=== PATIENT | female | born 1965 | race Caucasian/White ===

== ENCOUNTER 2018-08-28 16:03 | Emergency (ER) | payer OTHER ==
[2018-08-28 16:58] LABS: Absolute Lymphocytes (CBC) 2.1 K/uL (0.7-4.9); Absolute Monocytes 1.2 K/uL (0.1-1.3); Absolute Neutrophil 10.3 K/uL (1.8-8.0); Basophils % 0.3 % (0-1.3); Hematocrit 43.2 % (36.0-45.0); Lymphocytes % 15.1 % (15.3-44.8); MPV 7.5 fL (7.6-11.3); Monocytes % 9.1 % (3.3-12.3); RBC Red Blood Cell Count 4.53 M/uL (3.86-4.86)
--- NOTE | 2018-08-28 16:58 | RAD REPORT ---
EXAM DESCRIPTION: Ca Aguilar (2 Views)08/28/2018 4:46 pm CLINICAL HISTORY: Cough COMPARISON: None FINDINGS: The lungs appear clear of acute infiltrate. The heart is normal size IMPRESSION: No acute abnormalities displayed
[2018-08-28 17:12] LABS: Potassium 3.9 mmol/L (3.5-5.1)
--- NOTE | 2018-08-28 18:18 | ER ---
Nurse's Notes [facility] Name: Andra Rhodes Age: 53 yrs Sex: Female : 1965 Arrival Date: 08/28/2018 Time: 16:08 Bed 23 Private MD: CRYSTAL MAYS Diagnosis: Bronchitis, not specified as acute or chronic Presentation: 08/28 16:12 Presenting complaint: Patient states: SOB and nonproductive cough x 10 days. Recently hb seen by PCP, told she has pneumonia. On Levaquin Day 3. Transition of care: patient was not received from another setting of care. Onset of symptoms is unknown. Risk Assessment: Do you want to hurt yourself or someone else? Patient reports no desire to harm self or others. Care prior to arrival: None. 16:12 Method Of Arrival: Ambulatory hb 16:12 Acuity: ELÍAS 3 hb 16:42 Initial Sepsis Screen: Does the patient meet any 2 criteria? No. Patient's initial ls4 sepsis screen is negative. Does the patient have a suspected source of infection? Yes: Productive cough/pneumonia. Triage Assessment: 16:41 General: Appears in no apparent distress. Behavior is calm, cooperative. 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 - Social history:: Smoking status: Patient/guardian denies using tobacco. - Ebola Screening: : No symptoms or risks identified at this time. Screenin:16 Abuse screen: Denies threats or abuse. Denies injuries from another. Nutritional hb screening: No deficits noted. Tuberculosis screening: No symptoms or risk factors identified. Fall Risk None identified. Assessment: 17:34 Reassessment: No changes from previously documented assessment. Patient and/or family ls4 updated on plan of care and expected duration. Pain level reassessed. Patient is alert, oriented x 3, equal unlabored respirations, skin warm/dry/pink. General: see triage assessment . Pain:. Respiratory: Respiratory effort is even, unlabored, Respiratory pattern is regular. 18:29 Reassessment: No changes from previously documented assessment. Patient and/or family ls4 updated on plan of care and expected duration. Pain level reassessed. Patient is alert, oriented x 3, equal unlabored respirations, skin warm/dry/pink. Vital Signs: 16:15 BP 150 / 100; Pulse 112; Resp 18; Temp 99.2(TE); Pulse Ox 100% on R/A; Pain 0/10; hb 17:18 BP 117 / 80; Pulse 77; Resp 16; Temp 98.2; Pulse Ox 99% on R/A; Pain 3/10; ls4 18:31 BP 116 / 80; Pulse 60; Resp 16; Temp 98.2; Pulse Ox 99% on R/A; Pain 3/10; ls4 ED Course: 16:08 Patient arrived in ED. sb2 16:08 CRYSTAL MAYS is Private Physician. sb2 16:13 Marifer Chavez, REJI is [facility]. kb 16:13 Amol Patel MD is Attending Physician. kb 16:14 Triage completed. hb 16:15 Arm band placed on left wrist. EKG completed in triage. Results shown to MD. hb 16:20 Patient has correct armband on for positive identification. Placed in gown. Bed in low ls4 position. Side rails up X 1. 16:20 Pulse ox on. NIBP on. Warm blanket given. ls4 16:27 Jenifer Fontana, RN is Primary Nurse. ls4 16:35 Patient moved to radiology via wheelchair. mh1 16:40 Inserted saline lock: 18 gauge in right antecubital area, using aseptic technique. ds4 Blood collected. 16:42 No provider procedures requiring assistance completed. ls4 16:43 X-ray completed. Patient tolerated procedure well. Patient moved back from radiology. mh1 16:44 Chest Pa And Lat (2 Views) XRAY In Process Unspecified. EDMS 16:50 Blood Culture Adult (2) Sent. ds4 16:50 D-Dimer Sent. ds4 16:50 Basic Metabolic Panel Sent. ds4 16:51 CBC with Diff Sent. ds4 17:29 Flu Sent. ss 18:31 IV discontinued, intact, bleeding controlled, No redness/swelling at site. Pressure ls4 dressing applied. Administered Medications: No medications were administered Outcome: 18:16 Discharge ordered by . kb 18:30 Discharged to home ambulatory. ls4 18:30 Condition: stable 18:30 Discharge instructions given to patient, family, Instructed on discharge instructions, follow up and referral plans. medication usage, Demonstrated understanding of instructions, follow-up care, medications. 18:34 Patient left the ED. ls4 Signatures: Dispatcher [employer] EDMS Marifer Chavez, RESERVOIR ENGINEER-C RESERVOIR ENGINEER-Ckb Sherron Vazquez mh1 Sharonda Parham, RN RN Ash Sorensen ds4 Lainey Edge, RN RN Cheryl Jaime sb2 Jenifer Fontana, RN RN ls4
--- NOTE | 2018-08-28 18:18 | EDPHYS ---
Physician Documentation [facility] Name: Andra Rhodes Age: 53 yrs Sex: Female : 1965 Arrival Date: 08/28/2018 Time: 16:08 Bed 23 Private MD: CRYSTAL MAYS ED Physician Amol Patel HPI: 08/28 17:20 This 53 yrs old Female presents to ER via Ambulatory with complaints of kb PNEUMONIA. 17:20 The patient or guardian reports cough, that is intermittent, described as moderate, kb with no sputum, difficulty breathing. Onset: The symptoms/episode began/occurred 1.5 week(s) ago. Severity of symptoms: At their worst the symptoms were moderate, in the emergency department the symptoms are unchanged. Modifying factors: The symptoms are alleviated by nothing, the symptoms are aggravated by nothing. Associated signs and symptoms: The patient has no apparent associated signs or symptoms. The patient has not experienced similar symptoms in the past. The patient has not recently seen a physician. Pt reports cough and shortness of breath for a week and a half. Went to her Dr last Sunday and was given a shot of antibiotics and steroids, placed on a z-pack and medrol dose pack. Completed both of those, but symptoms continued so she went back to PCP on Sunday. Was put on levaquin and prednisone. Reports she felt better yesterday, but symptoms are back today. 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 - Social history:: Smoking status: Patient/guardian denies using tobacco. - Ebola Screening: : No symptoms or risks identified at this time. ROS: 17:19 Constitutional: Negative for fever, chills, and weight loss, ENT: Negative for injury, kb pain, and discharge, Neck: Negative for injury, pain, and swelling, Cardiovascular: Negative for chest pain, palpitations, and edema, Abdomen/GI: Negative for abdominal pain, nausea, vomiting, diarrhea, and constipation, Back: Negative for injury and pain, MS/Extremity: Negative for injury and deformity, Skin: Negative for injury, rash, and discoloration, Neuro: Negative for headache, weakness, numbness, tingling, and seizure. 17:19 Respiratory: Positive for cough, dyspnea on exertion, shortness of breath, Negative for hemoptysis, orthopnea, pleurisy, wheezing. Exam: 17:20 Constitutional: This is a well developed, well nourished patient who is awake, alert, kb and in no acute distress. Head/Face: Normocephalic, atraumatic. ENT: Nares patent. No nasal discharge, no septal abnormalities noted. Tympanic membranes are normal and external auditory canals are clear. Oropharynx with no redness, swelling, or masses, exudates, or evidence of obstruction, uvula midline. Mucous membranes moist. Neck: Trachea midline, no thyromegaly or masses palpated, and no cervical lymphadenopathy. Supple, full range of motion without nuchal rigidity, or vertebral point tenderness. No Meningismus. Chest/axilla: Normal chest wall appearance and motion. Nontender with no deformity. No lesions are appreciated. Cardiovascular: Regular rate and rhythm with a normal S1 and S2. No gallops, murmurs, or rubs. Normal PMI, no JVD. No pulse deficits. Respiratory: Lungs have equal breath sounds bilaterally, clear to auscultation and percussion. No rales, rhonchi or wheezes noted. No increased work of breathing, no retractions or nasal flaring. Abdomen/GI: Soft, non-tender, with normal bowel sounds. No distension or tympany. No guarding or rebound. No evidence of tenderness throughout. Back: No spinal tenderness. No costovertebral tenderness. Full range of motion. Skin: Warm, dry with normal turgor. Normal color with no rashes, no lesions, and no evidence of cellulitis. MS/ Extremity: Pulses equal, no cyanosis. Neurovascular intact. Full, normal range of motion. Neuro: Awake and alert, GCS 15, oriented to person, place, time, and situation. Cranial nerves II-XII grossly intact. Motor strength 5/5 in all extremities. Sensory grossly intact. Cerebellar exam normal. Normal gait. Vital Signs: 16:15 BP 150 / 100; Pulse 112; Resp 18; Temp 99.2(TE); Pulse Ox 100% on R/A; Pain 0/10; hb 17:18 BP 117 / 80; Pulse 77; Resp 16; Temp 98.2; Pulse Ox 99% on R/A; Pain 3/10; ls4 18:31 BP 116 / 80; Pulse 60; Resp 16; Temp 98.2; Pulse Ox 99% on R/A; Pain 3/10; ls4 MDM: 16:17 Patient medically screened. kb 17:18 Data reviewed: vital signs, nurses notes. Data interpreted: Pulse oximetry: on room air kb is 100 %. Interpretation: normal. 18:16 Counseling: I had a detailed discussion with the patient and/or guardian regarding: the kb historical points, exam findings, and any diagnostic results supporting the discharge/admit diagnosis, lab results, radiology results, the need for outpatient follow up, a family practitioner, to return to the emergency department if symptoms worsen or persist or if there are any questions or concerns that arise at home. 08/28 16:25 Order name: CBC with Diff; Complete Time: 17:14 kb 08/28 16:25 Order name: Basic Metabolic Panel; Complete Time: 17:14 kb 08/28 16:25 Order name: Flu; Complete Time: 17:46 kb 08/28 16:25 Order name: D-Dimer; Complete Time: 17:17 kb 08/28 16:26 Order name: Blood Culture Adult (2) kb 08/28 17:27 Order name: [place] Screen Profile; Complete Time: 18:02 kb 08/28 16:25 Order name: Chest Pa And Lat (2 Views) XRAY; Complete Time: 17:03 kb 08/28 16:25 Order name: IV Start; Complete Time: 16:50 kb Administered Medications: No medications were administered Disposition: 18:38 Co-signature as Attending Physician, Amol Patel MD. rn Disposition: 08/28/18 18:16 Discharged to Home. Impression: Bronchitis, not specified as acute or chronic. - Condition is Stable. - Discharge Instructions: Acute Bronchitis, [id number], Viral Respiratory Infection, [id number]. - Medication Reconciliation Form, Thank You Letter, Antibiotic Education, Prescription Opioid Use form. - Follow up: Emergency Department; When: As needed; Reason: Worsening of condition. Follow up: Private Physician; When: 2 - 3 days; Reason: Recheck today's complaints, Continuance of care, Re-evaluation by your physician. Signatures: Dispatcher [employer] ED Marifer Chvaez, HVAC ENGINEERING TECHNICIAN-C HVAC ENGINEERING TECHNICIAN-Ckb Amol Patel MD MD rn Baxter, Heather, RN RN hb Stewart, Lisa, RN RN ls4 Corrections: (The following items were deleted from the chart) 18:34 18:16 08/28/2018 18:16 Discharged to Home. Impression: Bronchitis, not specified as ls4 acute or chronic. Condition is Stable. Forms are Medication Reconciliation Form, Thank You Letter, Antibiotic Education, Prescription Opioid Use. Follow up: Emergency Department; When: As needed; Reason: Worsening of condition. Follow up: Private Physician; When: 2 - 3 days; Reason: Recheck today's complaints, Continuance of care, Re-evaluation by your physician. kb
== END 2018-08-28 18:34 | disposition home or self-care (01) ==
LOC: ER 16:03
DX: J40 Bronchitis, not specified as acute or chronic (principal)
CPT/HCPCS: 36415; 71046; 80048; 85025; 85379; 86308; 87040; 87804; 99284

== ENCOUNTER 2021-04-09 15:35 | Inpatient (IN) | payer BC ==
--- OUTSIDE RECORDS SUMMARY | 2021-04-09 15:41 | XMS REPORT | Continuity of Care Document ---
:1965 Author Organization [facility] t Address [address] [place] [address] Care Team Providers Name Role Phone Dennise Philippe Primary Care Physician Jennifer ODOM EAngie Attending Clinician Donnie BARRAZA Attending Clinician Blanca Live MD Attending Clinician Dhruv George Attending Clinician Ozzy Reese MD Attending Clinician Scott THAPA Attending Clinician Unavailable Abdirizak STEWART Attending Clinician Unavailable Brigida Talamantes MD Attending Clinician Evans Fowler MD Attending Clinician MD JENNIFER E. Attending Clinician Unavailable Isaiah Knowles Attending Clinician JENNIFER Admitting Clinician Unavailable MD JENNIFER E. Admitting Clinician Unavailable Payers Payer Name Policy Type Policy Effective Date Expiration Date Sour ce Number BCBSBCBS CHOICE [id number] [address] PPO/FEDERAL 00:00:00 Hospital EMPL [id number] 2020-Presen tPPO Problems Condition Condition Condition Status Onset Resolution Last Treating Co mments Source Name Details Category Date Date Treatment Clinician Date Subacromia Subacromia Disease Active 2019-08 M ethodi l bursitis l bursitis 2-11 st of left of left 00:00: Hospita shoulder shoulder 00 l joint joint Achilles Achilles Disease Active 2019-08 Metho di tendinosis tendinosis 12 st of left of left 00:00: Hospita lower lower 00 l extremity extremity Retrocalca Retrocalca Disease Active 2019-08 M ethodi thiago thiago 08-24 st bursitis, bursitis, 00:00: Hosp eloisa left left 00 l 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 08-24 exostosis, exostosis, 00:00: Ho spita left left 00 l Hallux Hallux Disease Active Methodi valgus valgus 02-05 with with 00:00: Hospita bunions, bunions, 00 l right right Diabetes Problem Resolve 2020-11-11 Me moria mellitus d 00:37:39 l (disorder) Diabetes He rmann mellitus (disorder) Resolved Problem 11/11/2020 [facility] Group Hyperchole Problem Resolve 2020-11-11 Memoria sterolemia d 00:37:39 l (disorder) Ethan n Hyperchole sterolemia (disorder) Resolved Problem 11/11/2020 Medical Group Hypertensi Problem Resolve 2020-11-11 Memoria ve d 00:37:39 l disorder, Mike systemic Hypertensi arterial ve (disorder) disorder, systemic arterial (disorder) Resolved Problem 11/11/2020 Medical Group Morbid Problem Active 2020-11-11 Memor ia obesity 00:37:39 l (disorder) Morbid Herm corie obesity (disorder) Active Problem 11/11/2020 Medical Group Female Problem Active 2020-11-11 Memor ia urinary 00:37:39 l stress Female Mike incontinen urinary ce stress (finding) incontinen ce (finding) Active Problem 11/11/2020 Medical Group Urge Problem Active 2020-11-11 Memor ia incontinen 00:37:39 l ce of Urge [place] urine incontinen (finding) ce of urine (finding) Active Problem 11/11/2020 Medical Group S/P RTC Diagnosis Active 2014-11-03 Me moria REPAIR 17:02:00 l S/P RTC Mike REPAIR Active [facility] Pharyngiti Pharyngiti Problem Active [facility] unspecifie unspecifie Me moria d etiology d etiology l [facility] Cough Cough Problem Active [facility] UTI UTI Diagnosis Active [facility]inary ([facility]inary [facility] - tract tract Memoria infection) infection) l [facility] Allergies, Adverse Reactions, Alerts Allergy Allergy Status Severity Reaction(s) Onset Inactive Treating Comm ents Source Name Type Date Date Clinician lidocain lidocain Active Memori a e e dhruv [place] Family History Family Member Diagnosis Comments Start Date Stop Date Source Natural father Diabetes [facility] Natural father Heart attack [facility] Natural father Heart disease [facility] Social History Social Habit Start Date Stop Date Quantity Comments Source Tobacco use and 2020-12-28 2020-12-28 Never used Islam exposure 00:00:00 00:00:00 Hospital Alcohol intake 2020-12-28 2020-12-28 Current drinker [facility] dist 00:00:00 00:00:00 of alcohol Hospital (finding) Sex Ass[birth year] At [birth year] F Islam 00:00:00 00:00:00 Hospital Smoking Status Start Date Stop Date Source Never smoker [facility] Hospit al Medications Ordered Filled Start Stop Current Ordering Indication Dosage Frequency Signature Comments Components Source Medication Medication Date Date Medication? Clinician (SIG) Name Name gabapentin 2020- No 100mg [id number] Take 1 Methodi (Neurontin) 01-[id number] 100 mg 00:00: 04:59 3D (100 mg Hospita capsule 00 :00 total) by l mouth 3 (three) times a day for 30 days. gabapentin 2020- No TAKE 1 Meth segundo (NEURONTIN) 01-27 CAPSULE BY s t 100 mg 00:00: 00:00 MOUTH Hospita capsule 00 :00 EVERY DAY l IN THE EVENING gabapentin Yes TAKE 1 Metho di (NEURONTIN) 01-[address] 100 mg 00:00: MOUTH Hospita capsule 00 EVERY DAY l IN THE EVENING gabapentin 2020- No 100mg QD Take 1 Met hodi (Neurontin) 01-[address] 100 mg 00:00: 00:00 (100 mg Hospita capsule 00 :00 total) by l mouth nightly. gabapentin 2020- No 100mg QD Take 1 Met hodi (Neurontin) 12-10- capsule st 100 mg 00:00: 00:00 (100 mg Hospita capsule 00 :00 total) by l mouth nightly. solifenacin Yes 5 mg = 1 Me moria 5 mg oral 3-30 tab, PO, l tablet 22:21: Daily, # [place] 00 90 tab, 1 Refill(s), Pharmacy: [facility] #[id number], 170.18, cm, 11/08/20 8:29:00 CDT, Height, 96.364, kg, 11/08/20 8:29:00 CDT, Weight 24 HR No 50 mg = 1 Memoria mirabegron 3-29 tab, PO, l 50 MG 21:50: Daily, [place] Extended 00 please fax Release prior auth Tablet forms to [Myrbetriq] , # 90 tab, 3 Refill(s), Pharmacy: [facility] #[id number], 170.18, cm, 11/08/20 8:29:00 CDT, Height, 96.364, kg, 11/08/20 8:29:00 CDT, Weight naproxen 2020- No 500mg Q.5D Take 1 Metho di (NAPROSYN) 10-[address] 500 MG 00:00: 04:59 (500 mg Hospita tablet 00 :00 total) by l mouth 2 (two) times a day for 15 days. Take 1 tablet twice daily for 15 days. Remainder of prescripti on quantity is for symptom management as needed. methylPREDN 2020- No 4mg Take 1 Met hodi ISolone 10-1915 tablet (4 st (MEDROL 00:00: 04:59 mg total) Hosp eloisa DOSEPAK) 4 00 :00 by mouth l mg tablet See Admin Instructio ns for 5 days. Use as directed by package instructio ns Sulfamethox Yes 1 tab, PO, Memoria azole 800 2-05 Q12H, X 5 l MG / 14:59: day, # 10 [place] Trimethopri 00 tab, 0 m 160 MG Refill(s), Oral Tablet Pharmacy: [Bactrim] [facility] #[id number], 162.56, cm, 09/14/20 15:06:00 [employer], Height, 96.364, kg, 09/14/20 15:06:00 [employer], Weight 24 HR 2020-0 Yes 50 mg = 1 Memoria mirabegron 2-02 tab, PO, l 50 MG 22:00: Daily, # Mike Extended 00 30 tab, 0 Release Refill(s), Tablet Pharmacy: [Myrbetriq] [facility] #[id number], 162.56, cm, 09/14/20 15:06:00 [employer], Height, 96.364, kg, 09/14/20 15:06:00 [employer], Weight meloxicam 2020-0 Yes 0 Memoria 7.5 mg oral 2-02 Refill(s) l tablet 21:14: Mike 00 busPIRone 5 2020-0 Yes 0 Memori a mg oral 2-02 Refill(s) l tablet 21:14: [place] 00 MetFORMIN 2020-0 Yes 0 Memoria (Eqv-Glucop 2-02 Refill(s) l dennise XR) 21:14: [place] 500 mg oral 00 tablet, extended release gabapentin 2020-0 Yes 0 Memoria 100 MG Oral 2-02 Refill(s) l Capsule 21:14: Mike 00 lisinopril 2020-0 Yes 0 Memoria 20 mg oral 2-02 Refill(s) l tablet 21:14: Mike 00 Hydrochloro 2020-0 Yes 0 Memori a thiazide 25 2-02 Refill(s) l MG Oral 21:14: [place] Tablet 00 gabapentin 2019-08 2020- No 100mg QD Take 1 Met hodi (Neurontin) 1-25 12-[address] 100 mg 00:00: 05:59 (100 mg Hospita capsule 00 :00 total) by l mouth nightly for 30 days. lisinopriL 2019-08 Yes 20mg QD Take 20 mg M ethodi (PRINIVIL) 1-[address] 20 mg 00:09: daily. Hospita tablet 55 l meloxicam 2019- Yes 7.5mg QD Take 7.5 Met hodi (MOBIC) 7.5 1-[address] mg tablet 00:09: mouth Hospita 55 daily. l metFORMIN 2019-08 Yes 500mg QD Take 500 Met hodi (GLUCOPHAGE 1-[address] ) 500 mg 00:09: mouth Hospita tablet 55 daily with l breakfast. atorvastati 2019-08 Yes 10mg QD Take 10 mg Methodi n (LIPITOR) 1-[address] 10 mg 00:09: daily. Hospita tablet 55 l busPIRone 2019-08 Yes 5mg Q.5D Take 5 mg Met hodi (BUSPAR) 5 -[address] MG tablet 00:09: (two) Hospita 55 times a l day. fluticasone 2019-08 Yes 2{spray QD 2 sprays Methodi propionate 1-14 } by Each st (FLONASE) 00:09: Nare route Ho spita 50 55 daily. l mcg/actuati on nasal spray aspirin 2019-08- No 325mg Q.5D Take 1 Method i (ECOTRIN) 08-[address] 325 MG 00:00: 05:59 (325 mg Hospita enteric 00 :00 total) by l coated mouth 2 tablet (two) times a day for 10 days. promethazin 2019-08- No 25mg Q6H Take 1 Met hodi e 08-24-20 tablet (25 st (PHENERGAN) 00:00: 05:59 mg total) Hospita 25 MG 00 :00 by mouth l tablet every 6 (six) hours as needed for nausea or vomiting for up to 7 days. cephalexin 2019-08- No 500mg Q.5D Take 1 Met hodi (KEFLEX) 08-[address] 500 MG 00:00: 05:59 (500 mg Hospita capsule 00 :00 total) by l mouth 2 (two) times a day for 2 doses. Estradiol Estradiol Yes Ezequiel as [facility]12 [place] [facility] 00:[facility]: [facility] 00 [facility] Zofran Zofran Yes Ezequiel [address] [facility] - 00[facility] 00 [facility] hydroCHLORO Yes Method i thiazide 5-03 st (HYDRODIURI 00:00: Hospit a L) 25 MG 00 l tablet Hydrochloro Hydrochloro Yes Ezequiel not [facility] thiazide thiazide [place] defined [facility] Tramadol Tramadol Yes Ezequiel [address] HCl HCl [facility] as needed [facility] Topamax Topamax Yes Ezequiel [address] [facility] Richland-3 [place]land-3 Yes Ezequiel not [facility] Acetaminoph Acetaminoph Yes Ezequiel not [facility] en-Codeine en-Codeine [facility] defined [facility] - [facility]3 [facility]3 [facility] Adderall XR Adderall XR Yes Ezequiel [address] [facility] [place] in the [facility] - morning [facility] Adderall XR Adderall XR Yes Ezequiel not [facility] [place] [facility] Duexis Duexis Yes Ezequiel [address] [facility] Vitamin B12 Vitamin B12 Yes Ezequiel not [facility] Atorvastati Atorvastati Yes Ezequiel [address] n Calcium n Calcium [facility] Topiramate Topiramate Yes Ezequiel not [facility] defined [facility] Amphetamine Amphetamine Yes Ezequiel not [facility] Salt Combo Salt Combo [facility] defined [facility] MetFORMIN MetFORMIN Yes Ezequiel [address] HCl ER HCl ER [facility] with [facility] - evening [facility]oria meal l [facility] Fluoxetine Fluoxetine Yes Ezequiel not [facility] Lisinopril Lisinopril Yes Ezequiel not [facility] Zinc Zinc Yes Ezequiel not [facility] Vital Signs Vital Name Observation Time Observation Value Comments Source Height 2020-11-08 13:29:00 170.18 cm Vicky Mckeon Weight 2020-11-08 13:29:00 [facility] Mike BMI Calculated 2020-11-08 13:29:00 Franny Vivas Systolic (mm Hg) 2020-09-14 21:06:00 Misael Mckeon Diastolic (mm Hg) 2020-09-14 21:06:00 Adam Mckeon Heart Rate 2020-09-14 21:06:00 [facility] Height 2020-09-14 21:06:00 162.56 cm [facility] Weight 2020-09-14 21:06:00 [facility] BMI Calculated 2020-09-14 21:06:00 Franny Vivas Body height 2020-07-23 21:08:00 162.6 cm [facility] Body weight 2020-07-23 21:08:00 93.441 kg [facility] BMI 2020-07-23 21:08:00 35.36 kg/m2 [facility] Systolic blood 2020-06-26 00:00:00 125 mm[Hg] [facility] pressure Diastolic blood 2020-06-26 00:00:00 83 mm[Hg] [facility] pressure Heart rate 2020-06-26 00:00:00 78 /min [facility] Body temperature 2020-06-26 00:00:00 35.56 Lise [facility] Respiratory rate 2020-06-26 00:00:00 16 /min [facility] Oxygen saturation in 2020-06-26 00:00:00 97 /min [facility] Arterial blood by Pulse oximetry Procedures Procedure Date / Time Performing Clinician Source Performed MRI LOWER EXTREMITY JOINT 2020-12-09 22:11:00 Anton Rodriguez [facility] WO CONTRAST LEFT IN ARTHROCENTESIS 2020-07-23 20:45:[address] [facility] ASPIR&/INJ MAJOR JT/BURSA W/O US XR SHOULDER 2+ VW LEFT 2020-07-23 20:40:27 López Ashlyn Ozzy [facility] IN AN ELECTIVE 2020-06-25 20:40:55 French [facility] ENDOTRACHEAL AIRWAY REPAIR, RUPTURE, ACHILLES 2020-06-25 20:13:00 Anton Rodriguez [facility] TENDON POC GLUCOSE 2020-06-25 17:03:00 Anton Rodriguez ospital COVID-19 QUALITATIVE 2020-06-24 22:14:00 Anton Rodriguez [facility] RT-PCR XR FOOT 3+ VW LEFT 2020-06-08 18:23:00 Anton Rodriguez [facility] XR CALCANEUS 2+ VW LEFT 2020-06-08 18:22:35 Anton Rodriguez [facility] MRI LOWER EXTREMITY 2020-05-27 00:15:00 Anton Rodriguez [facility] EXTERNAL STUDY Appendectomy [facility] Gallbladder operation [facility] Plan of Care Planned Activity Planned Date Details Comments Source Future Scheduled Test COVID-19 VACCINE (1) [facility] [code = COVID-19 VACCINE (1)] Future Scheduled Test Hepatitis C screening [facility] (procedure) [code = 545467965] Future Scheduled Test Screening for malignant [facility] neoplasm of cervix (procedure) [code = 622963074] Future Scheduled Test BREAST CANCER SCREENING [facility] [code = BREAST CANCER SCREENING] Future Scheduled Test COLONOSCOPY SCREENING [facility] [code = COLONOSCOPY SCREENING] Future Scheduled Test SHINGLES VACCINES (#1) [facility] [code = SHINGLES VACCINES (#1)] Future Scheduled Test INFLUENZA VACCINE [code [facility] = INFLUENZA VACCINE] Encounters Start End Encounter Admission Attending Care Care Encounter Source Date/Time Date/Time Type Type Clinicians Facility Department ID 2021-05-09 2021-05-09 Outpatient [facility] [id number] [facility] 08:30:00 08:30:00 02 l [place] 2021-01-28 2021-01-28 Orders Jennifer, 1.2.840.1 [id number] Methodi 00:00:00 00:00:00 Only Anton Moser 43583.1.[address] 3.430.2.7 Hospit a .3.421702 l .8 2021 2021 Refill Jennifer, 1.2.840.1 [id number] Methodi 00:00:00 00:00:00 Anton Moser [address]0519.1.[address] 3.430.2.7 Hospit a .3.083985 l .8 2021-01-25 2021-01-25 Travel 1.2.840.1 1.2.735.365 [id number] Methodi 00:00:00 00:00:[address] 3.430.2.7 0.2.7.3.698 Ho spita .3.364075 084.8 l .8 2021-01-20 2021-01-20 Office Donnie, 1.2.840.1 [id number] Methodi 10:33:55 11:57:18 Visit Dean 07775.1.[address] 3.430.2.7 Hospit a .3.206260 l .8 2021-01-20 2021-01-20 Travel 1.2.840.1 1.2.221.494 [id number] Methodi 00:00:00 00:00:[address] 3.430.2.7 0.2.7.3.698 Ho spita .3.325386 084.8 l .8 2021-01-20 2021-01-20 Outpatient DONNIE, [facility] [id number] 00:00:00 00:00:00 DEAN [address] 2021-01-18 2021-01-18 Travel 1.2.840.1 1.2.102.015 [id number] [id number] Methodi 00:00:00 00:00:[address] 3.430.2.7 0.2.7.3.698 Ho spita .3.771530 084.8 l .8 2021-01-12 2021-01-12 Yesenia Rodriguez, 1.2.840.1 [id number] Methodi 00:00:00 00:00:00 Only Anton Moser 56381.1.[address] 3.430.2.7 Hospit a .3.097137 l .8 2021-01-12 2021-01-12 Refill Jennifer, 1.2.840.1 [id number] Methodi 00:00:00 00:00:00 Anton Moser 60554.1.[address] 3.430.2.7 Hospit a .3.865836 l .8 2020-12-28 2020-12-28 Office Maria T, 1.2.840.1 [id number] Methodi 08:35:09 12:43:29 Visit Ifrah M [address]326.1.[address] 3.430.2.7 Hospit a .3.378626 l .8 2020-12-28 2020-12-28 Travel 1.2.840.1 1.2.384.030 [id number] [id number] Methodi 00:00:00 00:00:[address] 3.430.2.7 0.2.7.3.698 Ho spita .3.921488 084.8 l .8 2020-12-28 2020-12-28 Outpatient MARIA T, [facility] [id number] 00:00:00 00:00:00 IFRAH [address] 2020-12-15 2020-12-15 Travel 1.2.840.1 1.2.191.005 [id number] Methodi 00:00:00 00:00:[address] 3.430.2.7 0.2.7.3.698 Ho spita .3.305269 084.8 l .8 2020-12-14 2020-12-14 Telephone Jennifer, 1.2.840.1 [id number] Methodi 00:00:00 00:00:00 Anton [address]oser [address]246.1.[address] 3.430.2.7 Hospit a .3.338785 l .8 2020-12-10 2020-12-10 Office Donnie, 1.2.840.1 [id number] Methodi 13:17:40 14:10:43 Visit Dean 87889.1.[address] 3.430.2.7 Hospit a .3.017819 l .8 2020-12-10 2020-12-10 Travel 1.2.840.1 1.2.255.104 [id number] [id number] Methodi 00:00:00 00:00:[address] 3.430.2.7 0.2.7.3.698 Ho spita .3.532093 084.8 l .8 2020-12-10 2020-12-10 Outpatient DONNIE [facility] [id number] 00:00:00 00:00:00 DEAN [address] 2020-12-09 2020-12-09 [facility] Jennifer, 1.2.840.1 [id number] Methodi 16:08:17 23:59:00 Encounter Anton TravisAngie 73389.1.1 [address] t 3.430.2.7 Hospit a .3.468830 l .8 2020-12-09 2020-12-09 Outpatient JENNIFER [facility] [id number] [address] [place] [address] 00:00:00 00:00:00 ANTON [address] 2020-12-08 2020-12-08 Travel 1.2.840.1 1.2.918.456 [id number] [id number] Methodi 00:00:00 00:00:[address] 3.430.2.7 0.2.7.3.698 [facility] .[facility].605629 084.8 l .8 2020-12-07 2020-12-07 [facility], 1.2.840.1 [id number] Methodi 00:00:00 00:00:00 Only Anton AngyAngie 29435.1.[address] 3.430.2.7 Hospit a .3.014951 l .8 2020-11-15 2020-11-15 [facility] Donnie, 1.2.840.1 [id number] Methodi 00:00:00 00:00:[address] 3.430.2.7 Hospit a .3.310965 l .8 2020-11-08 2020-11-09 Outpatient nullFlavo [facility] Multi 35 [id number] Memoria 13:30:00 04:59:59 r Specialty 01 [facility] 2020-11-08 2020-11-08 Outpatient Ariel [facility] [id number] 08:30:00 23:59:59 Emma L 01 2020-11-08 2020-11-08 Outpatient LOPEZ IE [id number] Memoria 08:30:00 08:30:00 01 l Mike 2020-11-04 2020-11-04 Office Jennifer 1.2.840.1 [id number] Methodi 08:54:32 09:14:23 Visit Anton Moser 89277.1.[address] 3.430.2.7 Hospit a .3.613952 l .8 2020-11-04 2020-11-04 Travel 1.2.840.1 1.2.135.208 [id number] [id number] Methodi 00:00:00 00:00:[address] 3.430.2.7 0.2.7.3.698 Ho spita .3.349016 084.8 l .8 2020-11-04 2020-11-04 [facility] [id number] 00:00:00 00:00:00 ANTON [address] 2020-10-19 2020-10-19 [facility] Donnie, 1.2.840.1 [id number] Methodi 00:00:00 00:00:00 Only Dean 85064.1.[address] 3.430.2.7 Hospit a .3.204537 l .8 2020-09-16 2020-09-17 Between nullFlavo MG [id number] Memoria 18:16:51 18:16:51 Visit r Urology 03 l Josie puri [facility] 2020-09-16 2020-09-17 [facility] [id number] 12:16:51 12:16:51 03 2020-09-14 2020-09-15 [place] [id number] Memoria 20:30:00 05:59:59 r Urology 00 dhruv puri [facility] 2020-09-14 2020-09-14 Outpatient [facility]amaria [facility] [id number] 14:30:00 23:59:59 Emma Dhruv 00 2020-09-14 2020-09-14 Outpatient LOPEZ MARROQUIN [id number] Memoria 14:30:00 14:30:00 00 l [place] 2020-09-02 2020-09-02 Office Jennifer, 1.2.840.1 [id number] Methodi 12:47:06 13:02:06 Visit Anton TravisAngie 82620.1.[address] 3.430.2.7 Hospit a .3.047817 l .8 2020-09-02 2020-09-02 Outpatient JENNIFER [facility] [id number] [facility] 00:00:00 00:00:00 ANTON [address] 2020-09-02 2020-09-02 Travel 1.2.840.1 1.2.025.091 [id number] [id number] Methodi 00:00:00 00:00:[address] 3.430.2.7 0.2.7.3.698 spita .3.978489 084.8 l .8 2020-07-23 2020-08-05 Office López, 1.2.840.1 [id number] Methodi 14:16:33 10:45:52 Visit Ashlyn Preciado 94308.1.[address] 3.430.2.7 Hospit a .3.224337 l .8 2020-07-23 2020-07-23 Office Donnie, 1.2.840.1 [id number] Methodi 12:49:02 13:04:02 Visit Dean 96383.1.[address] 3.430.2.7 Hospit a .3.262537 l .8 2020-07-23 2020-07-23 Outpatient DONNIE [facility] [id number] [facility] 00:00:00 00:00:00 DEAN [address] 2020-07-23 2020-07-23 Outpatient LÓPEZ [facility] [id number] [facility] 00:00:00 00:00:00 ASHLYN [address] 2020-07-23 2020-07-23 Outpatient LÓPEZ [facility] [id number] [facility] 00:00:00 00:00:[address]SHLYN [address] 2020-07-23 2020-07-23 Orders Scott, 1.2.840.1 [id number] Methodi 00:00:00 00:00:00 Only Genna 39524.1.[address] 3.430.2.7 Hospit a .3.889840 l .8 2020-07-23 2020-07-23 Travel 1.2.840.1 1.2.314.414 [id number] [id number] Methodi 00:00:00 00:00:[address] 3.430.2.7 0.2.7.3.698 Ho spita .3.075494 084.8 l .8 2020-07-07 2020-07-07 Orders Donnie, 1.2.840.1 [id number] Methodi 00:00:00 00:00:00 Only Dean 52397.1.[address] 3.430.2.7 Hospit a .3.561537 l .8 2020-07-06 2020-07-06 Office Donnie 1.2.840.1 [id number] Methodi 10:57:04 11:12:04 Visit Dean 28651.1.[address] 3.430.2.7 Hospit a .3.448934 l .8 2020-07-06 2020-07-06 Outpatient DONNIE, [facility] [id number] 00:00:00 00:00:[address] DEAN [address] 2020-07-06 2020-07-06 Travel 1.2.840.1 1.2.486.933 [id number] [id number] Methodi 00:00:00 00:00:[address] 3.430.2.7 0.2.7.3.698 Ho spita .3.077822 084.8 l .8 2020-06-28 2020-06-28 Outpatient [facility] [id number] 00:00:00 00:00:[address] 2020-06-28 2020-06-28 Travel 1.2.840.1 1.2.090.519 [id number] [id number] Methodi 00:00:00 00:00:[address] 3.430.2.7 0.2.7.3.698 Ho spita .3.924573 084.8 l .8 2020-06-28 2020-06-28 Orders Reveles, 1.2.840.1 [id number] Methodi 00:00:00 00:00:00 Only Crystal 25118.1.[address] 3.430.2.7 Hospit a .3.387882 l .8 2020-06-25 2020-06-25 [facility], 1.2.840.1 [id number] Methodi 09:58:00 18:09:00 Encounter Anton Moser 71921.1.1 740 s t 3.430.2.7 Hospit a .3.269807 l .8 2020-06-25 2020-06-25 Anesthesia Edwina Talamantes 1.2.840.1 [id number] Methodi 14:13:00 16:09:00 Event Gatito Fowler 17453.1.[address] 3.430.2.7 Hospit a .3.445160 l .8 2020-06-25 2020-06-25 Surgery [facility], 1.2.840.1 [id number] Methodi 14:00:00 15:45:00 Anton Moser 28060.1.[address] 3.430.2.7 Hospit a .3.370167 l .8 2020-06-25 2020-06-25 Outpatient [place] [id number] [facility] 00:00:00 00:00:00 ANTON [address] 2020-06-24 2020-06-24 [facility] 1.2.840.1 [id number] Methodi 16:10:57 16:25:57 Anton Moser 50348.1.[address] 3.430.2.7 Hospit a .3.250952 l .8 2020-06-24 2020-06-24 [facility] [id number] 438 [facility] 00:00:00 00:00:00 ANTON [address] 2020-06-24 2020-06-24 Orders Donnie, 1.2.840.1 [id number] Methodi 00:00:00 00:00:00 Only Dean 04125.1.[address] 3.430.2.7 Hospit a .3.272689 l .8 2020-06-24 2020-06-24 Travel 1.2.840.1 1.2.369.678 [id number] [id number] Methodi 00:00:00 00:00:[address] 3.430.2.7 0.2.7.3.698 Ho spita .3.919209 084.8 l .8 2020-06-24 2020-06-24 Orders [place], 1.2.840.1 [id number] Methodi 00:00:00 00:00:00 Only Crystal [address]53.1.[address] 3.430.2.7 Hospit a .3.876384 l .8 2020-06-23 2020-06-23 Orders Reveles, 1.2.840.1 [id number] 2013 Methodi 00:00:00 00:00:00 Only Crystal [address]267.1.[address] 3.430.2.7 Hospit a .3.362079 l .8 2020-06-08 2020-06-08 Office Jennifer, 1.2.840.1 [id number] Methodi 13:05:42 13:20:42 Visit Anton Moser 62235.1.[address] 3.430.2.7 Hospit a .3.129481 l .8 2020-06-08 2020-06-08 Outpatient JENNIFER, [facility] [id number] 00:00:00 00:00:[address] 2020-06-08 2020-06-08 Outpatient JENNIFER, [facility] [id number] [address] [place] [address] 00:00:00 00:00:00 ATNON [address] 2020-06-08 2020-06-08 [facility] [id number] [address] [place] [address] 00:00:00 00:00:00 ANTON [address] 2020-06-08 2020-06-08 Travel 1.2.840.1 1.2.095.067 [id number] Methodi 00:00:00 00:00:[address] 3.430.2.7 0.2.7.3.698 Ho spita .3.050068 084.8 l .8 2020-06-02 2020-06-[address]1 [id number] Methodi 16:35:17 23:59:00 Encounter Anton Moser 50541.1.1 856 [address] t 3.430.2.7 Hospit a .3.830170 l .8 2020-06-02 2020-06-02 [facility] [id number] [address] [place] [address] 00:00:00 00:00:00 ANTON [address] 2020-05-28 2020-05-28 Travel 1.2.840.1 1.2.071.936 [id number] Methodi 00:00:00 00:00:[address] 3.430.2.7 0.2.7.3.698 Ho spita .3.250799 084.8 l .8 2019-07-01 2019-07-01 Outpatient Issac Davenportt [id number] [facility] 15:00:00 15:00:00 t Specialty/U Tracy kes - Specialty rology [facility] 2019-06-26 2019-06-26 Outpatient Brazchika [place] [id number] [address] 10:47:00 10:47:00 t Specialty/U Tracy kes - Specialty rology [facility] 2019-06-09 2019-06-09 Outpatient Issac Davenportt [id number] 08:30:00 08:30:00 t [facility] Clinics 2019-05-29 2019-05-29 Outpatient Issac Dejesus [id number] [facility] 13:26:00 13:26:00 t Specialty/U Tracy kes - Specialty rology Memori a /Urology Clinic l Clinic Outpati ent Clinics 2019-05-29 2019-05-29 Outpatient Timurchika [place] [id number] [address] 10:17:00 10:17:00 t Specialty/U Tracy kes - Specialty rology Memori a /Urology Clinic l Clinic Outpati ent Clinics 2019-05-22 2019-05-22 Outpatient Timurchika [place] [id number] [facility] 15:00:00 15:00:00 t Specialty/U Tracy kes - Specialty rology Memori a /Urology Clinic l Clinic Outpati ent Clinics 2019-05-12 2019-05-12 Outpatient Timurchika [place] [id number] [facility] 15:30:00 15:30:00 t Specialty/U Tracy kes - Specialty rology Mem[facility]Urology Clinic l Clinic Outpati ent Clinics 2019-05-05 2019-05-05 Outpatient [place]urchika [place] [id number] [facility] 15:16:00 15:16:00 t Specialty/U Tracy kes - Specialty rology Mem[facility] a [facility]Urology Clinic l Clinic Outpati ent Clinics 2019-03-28 2019-03-28 Outpatient [place] [id number] [address] 15:10:00 15:10:00 t Specialty/U Tracy kes - Specialty rology Mem[facility]Urology Clinic l Clinic Outpati ent Clinics 2019-03-24 2019-03-24 Outpatient [place]urchika [place] [id number] 15:30:00 15:30:00 t Specialty/U Tracy kes - Specialty rology [facility]Urology Clinic l Clinic Outpati ent Clinics 2014-11-03 2014-12-03 OP Therapy nullFlavo SMR Gianni [id number] [facility] 22:00:00 04:59:00 [facility] r [facility] 06 l Mike 2014-11-03 2014-12-02 Outpatient Benson, 2.16.840. 2.16.840.1. 3 [id number] 17:00:00 23:59:00 Lázaro 1.190333. 373980.3.61 06 Isaiah 3.615.0.1 5.0.673 42 2750-02-05 2014-10-17 OP Therapy nullFlavo SMR Gianni [id number] Mem[facility] 22:54:00 05:59:00 [facility] r [facility] 05 l Mike 2014-09-17 2014-10-16 Outpatient Knowles, 2.16.840. 2.16.840.1. 3 [id number] 16:54:00 23:59:00 Lázaro 1.255570. 605217.3.61 05 Isaiah 3.615.0.1 5.0.788 08 2432-01-02 2014-09-13 OP Therapy nullFlavo SMR Gianni [id number] [facility] 15:00:00 05:59:00 Patients r [facility] 04 l Mike 2014-08-14 2014-09-12 Outpatient Knowles, 2.16.840. 2.16.840.1. 3 [id number] 09:00:00 23:59:00 Lázaro 1.944088. 577994.3.61 04 Isaiah 3.615.0.1 5.0.101 01 Results Test Description Test Time Test Comments Results Result [facility] e Comments MRI Lower 2020-11-13 EXAMINATION: MRI Methodi Extremity Joint 0 LOWER EXTREMITY JOINT [facility] Wo Contrast Left 15:25:47 WO CONTRAST LEFT CLINICAL HISTORY: M77.32 Calcaneal spur left foot, M67.88 Other specified disorders of synovium and tendon other site, MRI LEFT ANKLE ATT- s p left Achilles debridement and repair with calcaneal exostectomy COMPARISON: None TECHNIQUE: Multiplanar, multisequence MR imaging examination of the left ankle was performed without contrast. FINDINGS: There are postoperative changes of Achilles tendon detachment, debridement, and repair. Patient is also status-post calcaneal tuberosity exostectomy and retrocalcaneal bursectomy. Achilles tendon is diffusely thickened and striated in appearance and there is fraying and longitudinal splits of the distal fibers, all expected postoperative changes. Fluid is observed within the operative bed between the exostectomy and inserting tendon fibers. The repair is intact. Suture anchors are well-positioned without back out. Trace fluid partially circumscribes the medial anchor. Achilles peritendinous soft tissue edema and calcaneal marrow edema likely reflect mild peritendinitis and resolving postoperative change. There is a small split tear of the anterior tibialis tendon that begins at the level of the tibiotalar joint and extends distally 2.4 cm. Speckled foci of intermediate T1 and PD signal intensity within the peroneus longus tendon are consistent with low-grade tendinosis. Trace fluid is also seen within the common peroneal tendon sheath. Other ankle tendons are unremarkable in appearance. No abnormality of the flexor, peroneal, or extensor retinaculum. Intermediate signal intensity thickening of the proximal anterior talofibular ligament is consistent with scar from chronic sprain (series 3 image 24 and series 12 image 17). There is also scarring of the superficial and deep components of the deltoid ligament and degeneration and thickening of the superomedial calcaneonavicular ligament. Syndesmotic ligaments are normal in appearance. 6 x 3 mm osteochondral lesion of the medial ridge of the talar dome. There is a grade 4 chondral defect with associated subchondral bone plate irregularity, microcystic change, and mild reactive marrow edema. 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 Similarly, there is mild osteoarthrosis of the fourth TMT joint. Remainder of the bone marrow signal is unremarkable. No malalignment or coalition. No joint effusion or ganglion. No abnormality of the anterior or posterior tarsal tunnels. Neurovasculature is unremarkable. Sinus tarsi is normal in signal. No mass or ganglion. Degeneration, thickening, and partial tearing of the proximal central and lateral cords of the plantar fascia with associated fasciitis and calcaneal spurring. Mild degeneration and nodularity are also seen in the mid aspect of the central cord. Normal muscle bulk and signal. Mild to moderate subcutaneous edema. No fluid collection. IMPRESSION: 1. Achilles tendon and repair are intact. There is resolving postoperative calcaneal marrow edema, residual fluid in the operative bed, and mild peritendinitis and paratenonitis. 2. Osteochondral lesion of the medial lip of the talar dome detailed above. 3. Mild peroneus longus tendinosis with trace common peroneal tendon sheath fluid. 4. Please see body of report for additional findings. Thank you for allowing us to participate in the care of your patient. [id number] Interface, Radiology Results Incoming - 12/10/2020 10:28 AM CDT EXAMINATION: MRI LOWER EXTREMITY JOINT WO CONTRAST LEFTCLINICAL HISTORY: M77.32 Calcaneal spur left foot, M67.88 Other specified disorders of synovium and tendon other site, MRI LEFT ANKLE ATT- s p left Achilles debridement and repair with calcaneal exostectomyCOMPARISON: NoneTECHNIQUE: Multiplanar, multisequence MR imaging examination of the left ankle was performed without contrast.FINDINGS: There are postoperative changes of Achilles tendon detachment, debridement, and repair. Patient is also status-post calcaneal tuberosity exostectomy and retrocalcaneal bursectomy.Achilles tendon is diffusely thickened and striated in appearance and there is fraying and longitudinal splits of the distal fibers, all expected postoperative changes. Fluid is observed within the operative bed between the exostectomy and inserting tendon fibers. The repair is intact. Suture anchors are well-positioned without back out. Trace fluid partially circumscribes the medial anchor.Achilles peritendinous soft tissue edema and calcaneal marrow edema likely reflect mild peritendinitis and resolving postoperative change.There is a small split tear of the anterior tibialis tendon that begins at the level of the tibiotalar joint and extends distally 2.4 cm.Speckled foci of intermediate T1 and PD signal intensity within the peroneus longus tendon are consistent with low-grade tendinosis. Trace fluid is also seen within the common peroneal tendon sheath.Other ankle tendons are unremarkable in appearance. No abnormality of the flexor, peroneal, or extensor retinaculum.Intermedia te signal intensity thickening of the proximal anterior talofibular ligament is consistent with scar from chronic sprain (series 3 image 24 and series 12 image 17).There is also scarring of the superficial and deep components of the deltoid ligament and degeneration and thickening of the superomedial calcaneonavicular ligament.Syndesmotic ligaments are normal in appearance.6 x 3 mm osteochondral lesion of the medial ridge of the talar dome. 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 Similarly, there is mild osteoarthrosis of the fourth TMT joint. Remainder of the bone marrow signal is unremarkable. No malalignment or coalition.No joint effusion or ganglion.No abnormality of the anterior or posterior tarsal tunnels. Neurovasculature is unremarkable.Sinus tarsi is normal in signal. No mass or ganglion.Degeneration, thickening, and partial tearing of the proximal central and lateral cords of the plantar fascia with associated fasciitis and calcaneal spurring. Mild degeneration and nodularity are also seen in the mid aspect of the central cord.Normal muscle bulk and signal. Mild to moderate subcutaneous edema. No fluid collection.IMPRESSION: 1. Achilles tendon and repair are intact. There is resolving postoperative calcaneal marrow edema, residual fluid in the operative bed, and mild peritendinitis and paratenonitis.2. Osteochondral lesion of the medial lip of the talar dome detailed above.3. Mild peroneus longus tendinosis with trace common peroneal tendon sheath fluid.4. Please see body of report for additional findings.Thank you for allowing us to participate in the care of your patient.[id number] Large Joint 2020-07-13 Ashlyn Reese II Ut thodi Arthrocentesis: 1 07/23/2020 Ho spital shoulder, L 20:45:00 5:42 PMLarge Joint subacromial Arthrocentesis: bursa shoulder, L subacromial bursaConsent given by: patientSite marked: site markedTimeout: Immediately prior to procedure a time out was called to verify the correct patient, procedure, equipment, customer support technician and site/side marked as required Supporting DocumentationIndicatio ns: pain Procedure DetailsPreparation: Patient was prepped and draped in the usual sterile fashionUltrasound guided: noLocation: shoulder - L subacromial bursa Left side:Needle size: 22 GApproach: posteriorLeft shoulder medications administered: 10 mL lidocaine 10 mg/mL (1 %); 2 mL bupivacaine 0.5 % (5 mg/mL); 40 mg methylPREDNISolone acetate 40 mg/mLPatient tolerance: patient tolerated the procedure well with no immediate complications Airway 2020-06-13 French Porter Metho dist 3 SUPERINTENDENT FACTORY 06/25/2020 Hospi taran 20:40:55 2:44 PMAirway Date/Time: 06/25/2020 2:21 PMPerformed by: French Porter CRNAAuthorized by: Gatito Fowler MD Location: ORUrgency: ElectiveDifficult Airway: No Anesthesiologist: Gatito Fowler MDResident/SUPERINTENDENT FACTORY/AA: French Porter HPerformed by: resident/SUPERINTENDENT FACTORY/AAPreoxy genated with 100% O2: Yes C-spine Precautions Maintained Throughout: Yes Mask Ventilation: Not attemptedFinal Airway Type: Endotracheal airwayFinal Endotracheal Airway: ETTTechnique Used: Direct laryngoscopyDevices/Me thods Used in Placement: Intubating styletInsertion Site: OralBlade Type: MillerLaryngoscope Blade/Videolaryngoscop e Blade Size: 2ETT Size (mm): 7.0Measured from: LipsETT to Lips (cm): 22Placement Verified by: CO2 detection, direct visualization and equal breath sounds Laryngoscopic view: Grade I - full view of glottisRapid Sequence Induction (RSI): No Modified RSI: Yes Number of Attempts at Approach: 1 Atraumatic intubation. Soft tissue unchanged from baseline. COVID-19 qualitative PCR 2020-06-25 07:35:25 Test Item Value Reference Range Interpretation Comme nts Interpretation (test code = 3651433) COVID-19 qualitative RT-PCR result Not-Detected Not-Detected (test code = 07867-6) COVID-19 qualitative RT-PCR (test code See link below for PDF Lab = 6043) [facility] RNA [Presence] in Respiratory specimen by GUERITA with probe [id number] 01:35:08 Test Item Value Reference Range Interpretation Comments SARS-CoV-2 (COVID-19) RNA Not detected Not-Detected [Presence] in Respiratory specimen by GUERITA with probe detection (test code = 43270-0) MRI Lower Extremity External [id number] 21:40:00This exam was not acquired at a [facility] facility and has not been interpreted by a [facility] Provider. The exam was imported into our imaging system.[facility]
[2021-04-09 16:39] LABS: Urine Blood Negative (Negative); Urine Glucose Negative (Negative); Urine Protein Negative (Negative); Urine Specific Gravity >=1.030 (1.005-1.030)
[2021-04-09] MEDS ORDERED: ONDANSETRON 4 MG/2 ML VIAL ONE (17:20)
[2021-04-09] MEDS ORDERED: MORPHINE 4 MG/ML SYR ONE (17:20)
[2021-04-09] MEDS ORDERED: NA CHLORIDE 0.9% 1,000 ML ONE ×2 (17:20→18:53)
[2021-04-09] MEDS ORDERED: FENTANYL CITR 100 MCG/2 ML ONE (17:46)
--- NOTE | 2021-04-09 17:51 | RAD REPORT ---
EXAM DESCRIPTION: CT - Abdomen Pelvis Wo Contrast - 04/09/2021 5:42 pm CLINICAL HISTORY: Abdominal pain. dysuria;Flank pain COMPARISON: No comparisons TECHNIQUE: CT imaging of the abdomen and pelvis was performed without contrast. Solid organ, bowel a nd vascular assessment is limited due to lack of IV and oral contrast. All CT scans are performed using dose optimization technique as appropriate and may include automated exposure control or mA/KV adjustment according to patient size. FINDINGS: The lower lung faulkner are clear.Gastric banding noted. Cholecystectomy. The liver, spleen, pancreas, adrenal glands and kidneys are within normal limits for a limited non-co ntrast examination. No bowel obstruction, free air, free fluid or abscess. Appendectomy. Orthopedic hardware is present in the lumbar spine. IMPRESSION: No acute intra-abdominal or pelvic findings. A limited non-contrast examination was performed as detailed.
[2021-04-09 17:52] LABS: Albumin 3.8 g/dL (3.4-5.0); Bilirubin Direct 0.1 mg/dL (0-0.2); Bilirubin Total 0.4 mg/dL (0.2-1.0); Potassium 4.1 mmol/L (3.5-5.1); Protein, Total 7.8 g/dL (6.4-8.2)
[2021-04-09 18:12] LABS: Absolute Lymphocytes (CBC) 1.7 K/uL (0.7-4.9); Basophils % 0.5 % (0-1.3); Hematocrit 38.8 % (36.0-45.0); Lymphocytes % 20.4 % (15.3-44.8); MPV 7.8 fL (7.6-11.3); RBC Red Blood Cell Count 4.01 M/uL (3.86-4.86)
[2021-04-09 19:11] LABS: Urine Bacteria >50 /HPF (<20); Urine RBC <5 /HPF (NONE SEEN)
--- NOTE | 2021-04-09 19:54 | ER ---
Nurse's Notes [facility] Name: Andra Rhodes Age: 56 yrs Sex: Female : 1965 Arrival Date: 04/09/2021 Time: 15:38 Bed 14 Private MD: Diagnosis: Dehydration;Failed outpatient therapy;Pyelonephritis;Acute kidney injury Presentation: 04/09 16:01 Chief complaint: Patient states: pretty sure I have a kidney infection, was seen at PCP iw this week, was diagnosed with UTI but is having low back pain and dizziness, nausea, blurred vision , had a xray done and COVID test , was started on Cipro by Latasha Calderón. Coronavirus screen: At this time, the client does not indicate any symptoms associated with coronavirus-19. Ebola Screen: Patient negative for fever greater than or equal to 101.5 degrees Fahrenheit, and additional compatible Ebola Virus Disease symptoms Patient denies exposure to infectious person. Patient denies travel to an Ebola-affected area in the 21 days before illness onset. No symptoms or risks identified at this time. Initial Sepsis Screen: Does the patient meet any 2 criteria? No. Patient's initial sepsis screen is negative. Does the patient have a suspected source of infection? No. Patient's initial sepsis screen is negative. Risk Assessment: Do you want to hurt yourself or someone else? Patient reports no desire to harm self or others. Onset of symptoms was April 05, 2021. 16:01 Method Of Arrival: Ambulatory iw 16:01 Acuity: ELÍAS 2 iw Triage Assessment: 04/10 08:00 General: Appears in no apparent distress. distressed. aj2 08:00 General:. General:. General: Appears comfortable, well developed, well nourished, aj2 Behavior is appropriate for age. Musculoskeletal: No deficits noted. Historical: - Allergies: 04/09 16:03 No Known Allergies; iw - Home Meds: 18:33 Metformin Oral [Active]; vg1 - PMHx: 16:03 ADD/ADHD; Hypertension; Depression; iw - Immunization history:: Client reports receiving the 1st dose of the Covid vaccine. - Social history:: Smoking status: . Screenin:18 Abuse screen: Denies threats or abuse. Nutritional screening: No deficits noted. vg1 Tuberculosis screening: No symptoms or risk factors identified. Fall Risk No fall in past 12 months (0 pts). No secondary diagnosis (0 pts). IV access (20 points). Ambulatory Aid- None/Bed Rest/Nurse Assist (0 pts). Gait- Normal/Bed Rest/Wheelchair (0 pts) Mental Status- Oriented to own ability (0 pts). Total Villegas Fall Scale indicates No Risk (0-24 pts). Assessment: 16:58 General: Appears in no apparent distress. comfortable, Behavior is calm, cooperative. vg1 Pain: Complains of pain in left low back and right low back Pain currently is 10 out of 10 on a pain scale. Noted to be grimacing. Neuro: Level of Consciousness is awake, alert, obeys commands, Oriented to person, place, time, situation, Reports dizziness. Cardiovascular: Patient's skin is warm and dry. Respiratory: Airway is patent Respiratory effort is even, unlabored. GI: Reports nausea, Patient currently denies vomiting. : Reports urgency, Denies burning with urination. EENT: No signs and/or symptoms were reported regarding the EENT system. Derm: Skin is intact, is healthy with good turgor. Musculoskeletal: Circulation, motion, and sensation intact. 18:24 Reassessment: Patient appears in no apparent distress at this time. No changes from vg1 previously documented assessment. Patient and/or family updated on plan of care and expected duration. Pain level reassessed. Patient is alert, oriented x 3, equal unlabored respirations, skin warm/dry/pink. 18:34 Reassessment: Pt stated had failed to mention that is currently taking Metformin, was vg1 prescribed by Dr Calderón due to being pre diabetic. Provider notified. 04/10 07:30 Reassessment: Patient appears in no apparent distress at this time. Patient and/or aj2 family updated on plan of care and expected duration. Pain level reassessed. Patient is alert, oriented x 3, equal unlabored respirations, skin warm/dry/pink. Patient denies pain at this time. Patient states feeling better. Vital Signs: 04/09 16:01 BP 95 / 67; Pulse 80; Resp 16; Temp 98.0; Pulse Ox 100% on R/A; Weight 92.99 kg; Height iw 5 ft. 4 in. (162.56 cm); Pain 10/10; 17:20 BP 95 / 75; Pulse 72; Resp 16; Pulse Ox 100% ; vg1 18:15 BP 94 / 57; Pulse 62; Resp 16; Pulse Ox 99% ; vg1 20:00 BP 99 / 67; Pulse 62; Resp 16; Pulse Ox 100% on R/A; vg1 04/10 09:48 BP 94 / 60; Pulse 62; Resp 18; Temp 97.3; Pulse Ox 99% ; aj2 04/09 16:01 Body Mass Index 35.19 (92.99 kg, 162.56 cm) iw ED Course: 04/09 15:38 Patient arrived in ED. mr 16:03 Triage completed. iw 16:04 Arm band placed on. iw 16:34 David Tapia, DARLYN is PHCP. pm1 16:34 Yobany Jo MD is Attending Physician. pm1 16:46 Zoey Young RN is Primary Nurse. vg1 17:10 Initial lab(s) drawn, by tx, sent to lab. Inserted saline lock: 20 gauge in right vg1 antecubital area, using aseptic technique. Blood collected. 17:19 Patient has correct armband on for positive identification. Bed in low position. Call vg1 light in reach. 17:41 Abdomen In Process Unspecified. EDMS 19:53 Bubba Santos PA is Hospitalizing Provider. pm1 21:50 No provider procedures requiring assistance completed. Patient admitted, IV remains in vg1 place. 23:20 Report given to Sandra PEARSON. 1 04/10 08:00 EKG completed in triage. Results shown to . EKG completed in triage. Results shown to priti ODOM. 09:00 Pulse ox on. NIBP on. aj2 10:05 IV is patent, is intact. aj2 Administered Medications: 04/09 17:11 Drug: NS 0.9% 1000 ml Route: IV; Rate: 1000 ml; Site: right antecubital; vg1 18:30 Follow up: IV Status: Completed infusion; IV Intake: 1000ml vg1 17:14 Not Given (Physician Discretion): morphine 4 mg IVP once; RASS on ADMIN: Combtv4, Very pm1 Agttd3, Agttd2, Rstlss1, AlertClm0, Drwsy-1, Lt Sdtn-2, Mod Sdtn-3, Dp Sdtn-4, UnArsble-5 17:15 Drug: Zofran (Ondansetron) 4 mg Route: IVP; Site: right antecubital; vg1 18:24 Follow up: Response: No adverse reaction; Marked relief of symptoms vg1 17:26 Drug: fentaNYL (PF) 25 mcg Route: IVP; Site: right antecubital; vg1 18:24 Follow up: Response: No adverse reaction; Pain is decreased vg1 18:33 Drug: NS 0.9% 1000 ml Route: IV; Rate: 1000 ml; Site: right antecubital; vg1 20:12 Follow up: IV Status: Completed infusion; IV Intake: 1000ml vg1 20:10 Drug: Rocephin (cefTRIAXone) 1 grams Route: IV; Rate: calculated rate; Site: right vg1 antecubital; 21:50 Follow up: IV Status: Completed infusion; IV Intake: 10ml vg1 Intake: 18:30 IV: 1000ml; Total: 1000ml. vg1 20:12 IV: 1000ml; Total: 2000ml. vg1 21:50 IV: 10ml; Total: 2010ml. vg1 Outcome: 19:54 Decision to Hospitalize by Provider. pm1 21:50 Admitted to ER Hold. Please see [facility] for further documentation. vg1 21:50 Condition: stable 21:50 Instructed on the need for admit. 04/10 10:05 Admitted to ICU accompanied by tech. aj2 Condition: stable Instructed on the need for admit. 10:20 Patient left the ED. eb Signatures: Dispatcher [employer] Pili Iyer Irene, RN RN iw David Tapia, DARLYN NEWS CONTENT SPECIALIST pm1 Gloria Huerta Victoria RN RN vg1 Mandi Tim aj2 Corrections: (The following items were deleted from the chart) 04/09 16:04 16:01 Acuity: ELÍAS 3 iw 16:04 16:01 Resp 16bpm; Temp 98.0F; 92.99 kg; Height 5 ft. 4 in.; BMI: 35.1; Pain 10/10; iw iw 16:07 16:01 BP 88 / 67; Pulse 80bpm; Resp 16bpm; Pulse Ox 100% RA; Temp 98.0F; 92.99 kg; iw Height 5 ft. 4 in.; BMI: 35.1; Pain 10/10; iw
--- NOTE | 2021-04-09 19:54 | EDPHYS ---
Physician Documentation [facility] Name: Andra Rhodes Age: 56 yrs Sex: Female : 1965 Arrival Date: 04/09/2021 Time: 15:38 Bed 14 Private MD: JASWANT Physician Yobany Jo HPI: 04/09 16:53 This 56 yrs old Female presents to ER via Ambulatory with complaints of Back pm1 Pain. 16:53 The patient presents with pain that is acute, with no known mechanism of injury. The pm1 symptoms are located in the low back. Onset: The symptoms/episode began/occurred 3 day(s) ago. The pain does not radiate. Associated signs and symptoms: Pertinent positives: abdominal pain, subjective fever, poor p.o. intake for the past 2 days due to sleeping all day. The problem was sustained Diagnosed with UTI on Sunday by PCP and discharged with Cipro. Modifying factors: The patient symptoms are alleviated by nothing, the patient symptoms are aggravated by nothing. Severity of symptoms: in the emergency department the symptoms are actually worse. The patient has been recently seen by a physician: the patient's primary care provider, with similar presenting complaints, and apparently given a diagnosis of UTI, lab tests were done, X-rays were performed, was given a prescription for antibiotics. Patient presents to the ER with complaints of bilateral flank pain, abdominal pain, and dysuria. Patient was seen by her PCP, Latasha Hummel, 3 days ago and was diagnosed with a UTI post urine sample and x-ray. Was discharged home with Cipro. Patient reports increased back pain and poor p.o. intake for the past 2 days due to sleeping all day. Historical: - Allergies: 16:03 No Known Allergies; iw - Home Meds: 18:33 Metformin Oral [Active]; vg1 - PMHx: 16:03 ADD/ADHD; Hypertension; Depression; iw - Immunization history:: Client reports receiving the 1st dose of the Covid vaccine. - Social history:: Smoking status: . ROS: 16:53 ENT: Negative for injury, pain, and discharge, Cardiovascular: Negative for chest pain, pm1 palpitations, and edema, Respiratory: Negative for shortness of breath, cough, wheezing, and pleuritic chest pain. 16:53 MS/Extremity: Negative for injury and deformity. 16:53 Skin: Negative for injury, rash, and discoloration. 16:53 Constitutional: Positive for poor PO intake, Subjective fever. 16:53 Abdomen/GI: Positive for abdominal pain, of the suprapubic area, Negative for nausea and vomiting, diarrhea, constipation. 16:53 Back: Positive for flank pain, bilaterally. 16:53 : Positive for urinary symptoms, flank pain. 16:53 Neuro: Positive for dizziness, Negative for numbness, tingling. Exam: 16:53 Constitutional: This is a well developed, well nourished patient who is awake, alert, pm1 and in no acute distress. Head/Face: Normocephalic, atraumatic. 16:53 Skin: Warm, dry with normal turgor. Normal color with no rashes, no lesions, and no evidence of cellulitis. MS/ Extremity: Pulses equal, no cyanosis. Neurovascular intact. Full, normal range of motion. 16:53 Eyes: Exam is negative for acute changes, Extraocular movements: no acute changes, Conjunctiva: no acute changes, no injection. 16:53 ENT: Exam is negative for acute changes, Mouth: Lips: normal, moist, Oral mucosa: normal, pink and intact, moist. 16:53 Cardiovascular: Rate: normal, Rhythm: regular, Pulses: no pulse deficits are appreciated. 16:53 Respiratory: Exam negative for acute changes, respiratory distress, shortness of breath. 16:53 Abdomen/GI: Inspection: abdomen appears normal, Palpation: soft, in all quadrants, mild abdominal tenderness, in the suprapubic area. 16:53 Back: pain, that is mild, of the left low back and right low back, normal spinal alignment noted, vertebral tenderness, is not appreciated. 16:53 Neuro: Exam negative for acute changes, Orientation: is normal, Mentation: is normal, Motor: is normal, moves all fours. Vital Signs: 16:01 BP 95 / 67; Pulse 80; Resp 16; Temp 98.0; Pulse Ox 100% on R/A; Weight 92.99 kg; Height iw 5 ft. 4 in. (162.56 cm); Pain 10/10; 17:20 BP 95 / 75; Pulse 72; Resp 16; Pulse Ox 100% ; vg1 18:15 BP 94 / 57; Pulse 62; Resp 16; Pulse Ox 99% ; vg1 20:00 BP 99 / 67; Pulse 62; Resp 16; Pulse Ox 100% on R/A; 1 04/10 09:48 BP 94 / 60; Pulse 62; Resp 18; Temp 97.3; Pulse Ox 99% ; 2 04/09 16:01 Body Mass Index 35.19 (92.99 kg, 162.56 cm) iw MDM: 04/09 16:39 Patient medically screened. [facility] 19:37 Data reviewed: vital signs. Data interpreted: Pulse oximetry: on room air is 99 %. pm1 Interpretation: normal. Counseling: I had a detailed discussion with the patient and/or guardian regarding: the historical points, exam findings, and any diagnostic results supporting the discharge/admit diagnosis, lab results, radiology results, the need for further work-up and treatment in the hospital. 19:38 ED course: We will admit the patient for hospitalization team to dehydration, acute pm1 kidney injury, clinical pyelonephritis, failed outpatient antibiotic therapy. 21:02 Physician consultation: Bubba BARRAZA regarding admission, patient's condition, and pm1 will see patient in ED. 04/09 16:38 Order name: Urine Dipstick-Ancillary; Complete Time: 16:41 EDME 04/09 16:42 Order name: Urine Microscopic Only; Complete Time: 19:26 pm1 04/09 16:42 Order name: Basic Metabolic Panel; Complete Time: 17:58 pm1 04/09 16:42 Order name: CBC with Diff; Complete Time: 18:21 pm1 04/09 16:42 Order name: Hepatic Function; Complete Time: 17:58 pm1 04/09 16:42 Order name: Lipase; Complete Time: 17:58 pm 04/09 18:03 Order name: Blood Culture Adult (2) [facility] 04/09 18:04 Order name: Blood Culture [facility] 04/09 19:12 Order name: Urine Culture [facility] 04/09 20:14 Order name: COVID-19 : Document "Date of Symptom Onset" if Symptomatic. [facility] 04/09 22:55 Order name: SARS-COV-2 RT PCR; Complete Time: 01:08 EDME 04/10 00:06 Order name: Lactate; Complete Time: 01:08 EDME 04/10 00:32 Order name: Glucose, Ancillary Testing; Complete Time: 01:08 EDME 04/09 17:37 Order name: Abdomen ; Complete Time: 17:58 EDME 04/10 03:55 Order name: CBC with Automated Diff EDME 04/10 04:14 Order name: Comprehensive Metabolic Panel EDME 04/10 04:14 Order name: Phosphorus EDME 04/10 04:14 Order name: Lipid Profile EDME 04/10 04:14 Order name: T4 Free EDME 04/10 04:14 Order name: Magnesium EDME 04/10 04:14 Order name: Thyroid Stimulating Hormone [facility] 04/10 04:49 Order name: Procalcitonin EDME 04/09 16:42 Order name: IV Saline Lock; Complete Time: 17:16 pm1 04/09 16:42 Order name: Labs collected and sent; Complete Time: 17:16 pm1 Administered Medications: 17:11 Drug: NS 0.9% 1000 ml Route: IV; Rate: 1000 ml; Site: right antecubital; vg1 18:30 Follow up: IV Status: Completed infusion; IV Intake: 1000ml vg1 17:14 Not Given (Physician Discretion): morphine 4 mg IVP once; RASS on ADMIN: Combtv4, Very pm1 Agttd3, Agttd2, Rstlss1, AlertClm0, Drwsy-1, Lt Sdtn-2, Mod Sdtn-3, Dp Sdtn-4, UnArsble-5 17:15 Drug: Zofran (Ondansetron) 4 mg Route: IVP; Site: right antecubital; vg1 18:24 Follow up: Response: No adverse reaction; Marked relief of symptoms vg1 17:26 Drug: fentaNYL (PF) 25 mcg Route: IVP; Site: right antecubital; vg1 18:24 Follow up: Response: No adverse reaction; Pain is decreased vg1 18:33 Drug: NS 0.9% 1000 ml Route: IV; Rate: 1000 ml; Site: right antecubital; vg1 20:12 Follow up: IV Status: Completed infusion; IV Intake: 1000ml vg1 20:10 Drug: Rocephin (cefTRIAXone) 1 grams Route: IV; Rate: calculated rate; Site: right vg1 antecubital; 21:50 Follow up: IV Status: Completed infusion; IV Intake: 10ml vg1 Disposition: 04/11 07:46 Co-signature as Attending Physician, Yobany Jo MD I agree with the assessment and desiree plan of care. Disposition Summary: 04/09/21 19:54 Hospitalization Ordered Hospitalization Status: Inpatient Admission pm1 Provider: Bubba Santos pm1 Condition: Stable pm1 Problem: new pm1 Symptoms: have improved pm1 Bed/Room Type: Standard pm1 Location: Telemetry/MedSurg (Inpatient)(04/10/21 09:25) dw Room Assignment: 225(04/10/21 09:25) Diagnosis - Dehydration pm1 - Failed outpatient therapy pm1 - Pyelonephritis pm1 - Acute kidney injury pm1 Forms: - Medication Reconciliation Form pm1 - SBAR form pm1 Signatures: Dispatcher [employer] EDMS Sherron Szymanski RN Cristina Leblanc RN Yobany Neves MD MD cha Williams, Irene RN LILI iw David Tapia, [employer] WORK[employer] pm1 Zoey Young RN RN vg1 Corrections: (The following items were deleted from the chart) 04/09 17:37 16:43 Abdomen Pelvis W Con+CT.RAD.BRZ ordered. EDME EDME 20:58 19:54 Telemetry/MedSurg (Inpatient) pm1 mw 20:58 19:54 pm1 mw 21:40 20:15 CORONAVIRUS ordered. EDME EDME 04/10 09:25 04/09 20:58 [facility] ER HOLD [facility] 04/10 09:25 04/09 20:58 ERHOLD- [facility]
[2021-04-09] MEDS: CEFTRIAXONE/SWI 1gm 1 GM/10 ML SYR IV SCH (20:00)
[2021-04-09] MEDS ORDERED: CEFTRIAXONE/SWI 1gm 1 GM/10 ML SYR ONE (20:22)
[2021-04-09 22:54] VITALS: BMI 35.2
[2021-04-09] MEDS ORDERED: ACETAMINOPHEN 500 MG TAB PO PRN (23:12)
[2021-04-09] MEDS: NA CHLORIDE 0.9% 1,000 ML IV SCH (23:12)
[2021-04-09] MEDS ORDERED: ONDANSETRON 4 MG/2 ML VIAL IV PRN (23:12)
[2021-04-10] MEDS ORDERED: FENTANYL CITR 100 MCG/2 ML IV PRN (00:19)
[2021-04-10] MEDS ORDERED: MELATONIN 5 MG TABLET PO PRN (00:19)
[2021-04-10] MEDS ORDERED: NA CHLORIDE 0.9% 1,000 ML ONE (00:33)
--- NOTE | 2021-04-10 00:49 | P.HP ---
Certification for Inpatient Patient admitted to: Inpatient With expected LOS: <2 Midnights Patient will require the following post-hospital care: None Practitioner: I am a practitioner with admitting privileges, knowledge of patient current condition, hospital course, and medical plan of care. Services: Services provided to patient in accordance with Admission requirements found in Title 42 Section 412.3 of the Code of Federal Regulations Patient History Date of Service: 04/10/21 Reason for admission: UTI, YIN, dehydration History of Present Illness: Ms. Diego is a 56 yo F who presents with nausea and abdominal pain and cramping for the past week. Initially she had flank pain, then urgency and frequency. Her PCP started her on ciprofloxacin for UTI. Today she noticed increased fatigue, too weak to walk, and that her BP was very low at home. She tried to drink fluids but was not very thirsty. Denies vomiting and dysuria. BP upon arrival 95/67. BUN 34, Cr 2.07, GFR 25. UA showed WBCs and bacteria. CT A/P wnl. Allergies No Known Allergies Allergy (Unverified 04/09/21 21:59) - Past Medical/Surgical History Has patient received pneumonia vaccine in the past: No Diabetic: No -: HTN -: HLD -: prediabetes -: 3 c sections -: cholecystectomy -: appendectomy -: lap band -: back fusion, neck fusion -: 2 ACL repairs, achilles repair Psychosocial/ Personal History: teacher - Family History Mother -: Hypertension Father -: Heart disease, Hypertension, Diabetes - Social History Smoking Status: Never smoker Alcohol use: Yes CD- Drugs: No Caffeine use: Yes Place of Residence: Home Review of Systems 10-point ROS is otherwise unremarkable Gastrointestinal: Nausea, Abdominal Pain Genitourinary: Frequency, Urgency Musculoskeletal: Back Pain Physical Examination - Vital Signs Temperature: 97.7 F Blood Pressure: 105/64 Pulse: 62 Respirations: 16 Pulse Ox (%): 100 - Physical Exam General: Alert, In no apparent distress HEENT: Atraumatic, PERRLA, Mucous membr. moist/pink, EOMI, Sclerae nonicteric Neck: Supple, 2+ carotid pulse no bruit, No LAD, Without JVD or thyroid abnormality Respiratory: Clear to auscultation bilaterally, Normal air movement Cardiovascular: Regular rate/rhythm, Normal S1 S2 Gastrointestinal: Normal bowel sounds, No ascites, No masses, No rebound, No guarding, Other (flank pain ), Tenderness Musculoskeletal: No clubbing, No swelling, No contractures, No erythema, No tenderness, No warmth Integumentary: No rashes Neurological: Normal speech, Normal strength at 5/5 x4 extr, Normal tone, Normal affect Lymphatics: No axilla or inguinal lymphadenopathy - Studies Laboratory Data (last 24 hrs) 04/09/21 17:09: WBC 8.50, Hgb 12.9, Hct 38.8, Plt Count 307 04/09/21 17:09: Sodium 137, Potassium 4.1, BUN 34 H, Creatinine 2.07 H, Glucose 105, Total Bilirubin 0.4, AST 27, ALT 40, Alkaline Phosphatase 73, Lipase 170 Assessment and Plan - Plan continue IVF hydration, continue to monitor BP closely repeat BMP in the AM to monitor kidney function, if no improvement, will consult nephrology pain management and antiemetics as needed IV ceftriaxone daily hold BP medications accuchecks and slidign scale insulin as needed reconcile and continue other home medications DVT ppx Discharge Plan: Home Plan to discharge in: 48 Hours - Advance Directives Does patient have a Living Will: Yes Does patient have a Durable POA for Healthcare: Yes - Code Status/Comfort Care Code Status Assessed: Yes (full code ) Critical Care: No Time Spent Managing Pts Care (In Minutes): 70
[2021-04-10] MEDS ORDERED: MELATONIN 5 MG TABLET PO ONE (01:04)
[2021-04-10] MEDS ORDERED: FENTANYL CITR 100 MCG/2 ML ONE (01:05)
[2021-04-10 03:48] LABS: Absolute Lymphocytes (CBC) 1.9 K/uL (0.7-4.9); Basophils % 0.4 % (0-1.3); Hematocrit 33.2 % (36.0-45.0); Lymphocytes % 27.7 % (15.3-44.8); MPV 7.4 fL (7.6-11.3); RBC Red Blood Cell Count 3.45 M/uL (3.86-4.86)
[2021-04-10 04:13] LABS: Albumin 3.1 g/dL (3.4-5.0); Bilirubin Total 0.3 mg/dL (0.2-1.0); Magnesium 1.9 mg/dL (1.8-2.4); Phosphorus 3.2 mg/dL (2.5-4.9); Potassium 3.5 mmol/L (3.5-5.1); Protein, Total 6.2 g/dL (6.4-8.2); Thyroid Stimulating Hormone 1.45 uIU/mL (0.360-3.740)
[2021-04-10] MEDS: INSULIN -REGULAR HUMAN 50 UNIT/0.5 ML ML SQ SCH ×5 (07:30→21:00)
[2021-04-10] MEDS ORDERED: POTASSIUM CL SA 10 MEQ TAB PO ONE (12:00)
[2021-04-10] MEDS: NA CHLORIDE 0.9% 1,000 ML IV SCH ×2 (12:00→19:12)
[2021-04-10] MEDS ORDERED: HYDROCODONE/APAP 10/325 TAB PO PRN (12:08)
[2021-04-10] MEDS ORDERED: HYDROMORPHONE HCL 0.5 MG/0.5 ML INJ IV PRN (12:18)
[2021-04-10] MEDS ORDERED: D50W 25 GM/50 ML SYRINGE IV PRN (12:19)
[2021-04-10] MEDS ORDERED: GLUCAGON 1 MG/VIAL IM PRN (12:19)
[2021-04-10] MEDS: ACETAMINOPHEN 500 MG TAB PO SCH ×2 (13:00→17:49)
[2021-04-10 13:13] VITALS: O2SAT 94
--- NOTE | 2021-04-10 14:32 | P.PN ---
Date of Service: 04/10/21 Patient asked to speak to me as she had a lot of questions about her care. She had some utricaria around the source of her IV. She was wondering if she needed another ct. The patient has had a significant improvement in her kidney function. Will hold the fluids. She is eating and drinking. Will retest her kidney function in the morning. If this continues to improve we can discharge her in the morning
[2021-04-10] MEDS: PHENAZOPYRIDINE 100MG TAB PO SCH ×2 (14:33→22:04)
[2021-04-10] MEDS: TAMSULOSIN 0.4 MG SR CAP PO SCH (16:34)
[2021-04-10] MEDS ORDERED: DIPHENHYDRAMINE 50 MG/ML VIAL IV PRN (17:27)
[2021-04-10] MEDS ORDERED: CEFTRIAXONE 1 GM/NS 50 ML 1 GM/50 ML BAG IV SCH (20:00)
[2021-04-10] MEDS: CEFTRIAXONE/SWI 1gm 1 GM/10 ML SYR IV SCH (21:54)
[2021-04-11] MEDS: ACETAMINOPHEN 500 MG TAB PO SCH ×3 (01:00→12:03)
[2021-04-11 06:24] LABS: Albumin 3.2 g/dL (3.4-5.0); Bilirubin Total 0.3 mg/dL (0.2-1.0); Potassium 4.1 mmol/L (3.5-5.1); Protein, Total 6.5 g/dL (6.4-8.2)
[2021-04-11] MEDS: INSULIN -REGULAR HUMAN 50 UNIT/0.5 ML ML SQ SCH ×2 (07:30→11:30)
[2021-04-11] MEDS: PHENAZOPYRIDINE 100MG TAB PO SCH (08:19)
[2021-04-11] MEDS: TAMSULOSIN 0.4 MG SR CAP PO SCH (08:21)
[2021-04-11] MEDS ORDERED: FLUOXETINE 10 MG CAP PO SCH (09:00)
[2021-04-11] MEDS ORDERED: hydroCHLOROthiazide 12.5 MG CAP PO SCH (09:00)
[2021-04-11] MEDS ORDERED: ATORVASTATIN 10 MG TAB PO SCH (09:00)
--- NOTE | 2021-04-11 11:07 | P.DS ---
Admission Date: 04/09/21 Discharge Date: 04/11/21 Disposition: ROUTINE DISCHARGE Discharge Condition: GOOD Reason for Admission: UTI, YIN, dehydration Brief History of Present Illness: Patient was admitted for back pain With nausea. She had acute renal failure Was admitted for fluids and pain management Hospital Course: Patient is is doing much better. She has improve her creatine. She is tolerating orals. Her pain is better controlled. the paitent had gm positive cocci. She is doing well otherwise Will have her follow up with her pcp Mary Calderón. Vital Signs/Physical Exam: Temp Pulse Resp BP Pulse Ox 97.5 F 66 18 103/62 92 04/11/21 07:00 04/11/21 07:00 04/11/21 07:00 04/11/21 08:19 04/11/21 07:00 General: Alert, In no apparent distress HEENT: Atraumatic, PERRLA, EOMI Neck: Supple, JVD not distended Respiratory: Clear to auscultation bilaterally, Normal air movement Cardiovascular: Regular rate/rhythm, Normal S1 S2 Gastrointestinal: Normal bowel sounds, No tenderness Musculoskeletal: No tenderness Integumentary: No rashes Neurological: Normal speech, Normal tone, Normal affect Lymphatics: No axilla or inguinal lymphadenopathy Laboratory Data at Discharge: WBC 7.00 K/uL (4.3-10.9) D 04/10/21 03:18 Hgb 11.3 g/dL (12.0-15.0) L 04/10/21 03:18 Hct 33.2 % (36.0-45.0) L 04/10/21 03:18 Plt Count 265 K/uL (152-406) 04/10/21 03:18 Sodium 142 mmol/L (136-145) 04/11/21 05:47 Potassium 4.1 mmol/L (3.5-5.1) 04/11/21 05:47 BUN 16 mg/dL (7-18) 04/11/21 05:47 Creatinine 0.89 mg/dL (0.55-1.3) 04/11/21 05:47 Glucose 92 mg/dL (74-106) 04/11/21 05:47 Phosphorus 3.2 mg/dL (2.5-4.9) 04/10/21 03:18 Magnesium 1.9 mg/dL (1.8-2.4) 04/10/21 03:18 Total Bilirubin 0.3 mg/dL (0.2-1.0) 04/11/21 05:47 AST 18 U/L (15-37) 04/11/21 05:47 ALT 33 U/L (12-78) 04/11/21 05:47 Alkaline Phosphatase 68 U/L (45-117) 04/11/21 05:47 Triglycerides 75 mg/dL (<150) 04/10/21 03:18 Cholesterol 115 mg/dL (<200) 04/10/21 03:18 HDL Cholesterol 58 mg/dL (40-60) 04/10/21 03:18 Cholesterol/HDL Ratio 1.98 04/10/21 03:18 Lipase 170 U/L (73-393) 04/09/21 17:09 Home Medications: Atorvastatin Calcium [Lipitor] 10 mg PO DAILY 04/10/21 Fluoxetine HCl [Prozac] 10 mg PO DAILY 04/10/21 Lisinopril [Zestril] 20 mg PO DAILY 04/10/21 Meloxicam [Mobic] 7.5 mg PO DAILY 04/10/21 Metformin ER [Glucophage ER] 500 mg PO DAILY 04/10/21 hydroCHLOROthiazide [Hydrochlorothiazide*] 12.5 mg PO DAILY 04/10/21 Sulfamethoxazole/Trimethoprim [Bactrim Ds Tablet] 1 each PO BID 7 Days #14 tablet 04/11/21 New Medications: Sulfamethoxazole/Trimethoprim [Bactrim Ds Tablet] 1 each PO BID 7 Days #14 tablet Diet: Regular Activity: Ad gaye Followup: Latasha Calderón NP [Primary Care Provider] - Physician Review: Patient Assessed, Agree with Above Assessment and Plan Time spent managing pt's care (in minutes): 20
[2021-04-11 11:40] VITALS: BP 135/70; TEMP 96.6
== END 2021-04-11 12:49 | disposition home or self-care (01) | DRG 683 ==
LOC: ER 15:35 → ERHOLD 21:23 → 2ND 04-10 09:28
PROVIDERS: ADMIT Internal Medicine; ATTEND Internal Medicine
DX: N17.9 Acute kidney failure, unspecified (principal); N39.0 Urinary tract infection, site not specified; E86.0 Dehydration; I10 Essential (primary) hypertension; Z98.84 Bariatric surgery status; E78.5 Hyperlipidemia, unspecified; Z20.822 Contact with and (suspected) exposure to COVID-19
CPT/HCPCS: 36415; 74176; 80048; 80053; 80061; 80076; 81003; 81015; 82565; 82947; 83605; 83690; 83735; 84100; 84145; 84439; 84443; 85025; 87040; 87086; 87088; 87205; 94760; 96361; 96365; 96366; 96375; 99285; J0696; J1200; J2405; J3010; J7030; U0003